=== PATIENT | female | born 1970 | race African-American/Black ===

== ENCOUNTER 2017-06-15 19:48 | Emergency (ER) | payer MEDICAID ==
[~2017-06-15] VITALS: Ht 160 cm; Wt 67.0 kg
[~2017-06-15 19:48] MED LIST: ASPI-1160; HYDR-3927 PO; PANT40VI6 IV
[2017-06-15] MEDS ORDERED: KETOROLAC 60MG/2ML VIAL IM ONE (21:30)
[2017-06-15] MEDS ORDERED: IBUPROFEN 600MG TABLET PO ONE (22:00)
[2017-06-15 22:35] VITALS: BP 121/79
== END 2017-06-15 23:05 | disposition home or self-care (01) ==
LOC: ER 21:49
DX: G44.209 Tension-type headache, unspecified, not intractable (principal); M54.2 Cervicalgia; Z79.82 Long term (current) use of aspirin
CPT/HCPCS: 81025; 99283; Z7610

== ENCOUNTER 2017-07-03 09:48 | Emergency (ER) | payer MEDICAID ==
[~2017-07-03] VITALS: Ht 160 cm; Wt 62.0 kg
[2017-07-03] MEDS ORDERED: ALPRAZOLAM 0.25 MG TABLET PO ONE (10:45)
[2017-07-03] MEDS ORDERED: KETOROLAC 60MG/2ML VIAL IM ONE (10:45)
[2017-07-03 14:53] VITALS: BP 127/86
== END 2017-07-03 14:55 | disposition home or self-care (01) ==
LOC: ER 10:25
DX: R07.89 Other chest pain (principal); F41.1 Generalized anxiety disorder; I10 Essential (primary) hypertension; Z90.49 Acquired absence of other specified parts of digestive tract; Z79.82 Long term (current) use of aspirin
CPT/HCPCS: 36415; 71010; 81025; 84484; 93005; 99285; J1885

== ENCOUNTER 2017-09-10 08:03 | Emergency (ER) | payer MEDICAID ==
[~2017-09-10] VITALS: Ht 160 cm; Wt 60.0 kg
[2017-09-10 08:44] VITALS: BP 143/59
[2017-09-10] MEDS ORDERED: AMLO2.5T45 PO (08:46)
== END 2017-09-10 12:01 | disposition home or self-care (01) ==
LOC: ER 10:26
DX: M79.605 Pain in left leg (principal); M79.604 Pain in right leg; F41.9 Anxiety disorder, unspecified; I10 Essential (primary) hypertension; G62.9 Polyneuropathy, unspecified; Z79.82 Long term (current) use of aspirin; Z90.49 Acquired absence of other specified parts of digestive tract; Z98.51 Tubal ligation status; Z98.890 Other specified postprocedural states
CPT/HCPCS: 81025; 82962; 99282

== ENCOUNTER 2022-03-15 22:35 | Emergency (ER) | payer MEDICAID ==
[~2022-03-15] VITALS: Ht 167.6 cm; Wt 59.0 kg
[~2022-03-15 22:35] MED LIST changes: +AMLO2.5T45 PO
[2022-03-15 22:37] VITALS: BP 161/79
[2022-03-15] MEDS ORDERED: LORAZEPAM 1MG TABLET PO ONE (23:15)
[2022-03-16 01:08] LABS: BASOPHILS % 0.7 % (0.0-2.0); EOSINOPHILS % 0.1 % (0.0-5.0); HEMATOCRIT. 38.2 % (36.0-48.0); HEMOGLOBIN. 12.3 g/dL (12.0-16.0); MEAN CORPUSCULAR HEMOGLOBIN 27.2 pg (28.0-32.0); MEAN CORPUSCULAR VOLUME 84.4 fL (81.0-99.0); MEAN PLATELET VOLUME 9.3 fl (7.4-10.4); MONOCYTES % 6.8 % (2.0-8.0); NEUTROPHILS % 63.4 % (40.0-76.0); PLATELET 258 x1000/uL (130-400); RED BLOOD CELL COUNT 4.52 mill/uL (4.2-5.4); RED CELL DISTRIBUTION WIDTH 14.2 % (11.6-14.6)
[2022-03-16 01:18] LABS: CHLORIDE 106 mEq/L (98-107)
== END 2022-03-16 02:55 | disposition home or self-care (01) ==
LOC: ER 22:35
DX: R07.89 Other chest pain (principal); F41.9 Anxiety disorder, unspecified; I10 Essential (primary) hypertension; Z98.51 Tubal ligation status; Z90.49 Acquired absence of other specified parts of digestive tract
CPT/HCPCS: 36415; 71045; 80053; 84484; 85025; 93005; 99285